=== PATIENT | male | born 1955 | race Caucasian/White ===

== ENCOUNTER 2016-12-14 15:23 | Emergency (ER) | payer BC | END 2016-12-14 17:50 | disposition home or self-care (01) | LOC: ER1 15:23 | DX: R33.9 Retention of urine, unspecified (principal); E03.9 Hypothyroidism, unspecified; Z79.899 Other long term (current) drug therapy | CPT/HCPCS: 99283 ==

== ENCOUNTER → 2017-02-11 | Outpatient (CLI) | payer BC | LOC: CT 09:30 | DX: Z87.891 Personal history of nicotine dependence (principal); R91.1 Solitary pulmonary nodule | CPT/HCPCS: G0297 ==